=== PATIENT | male | born 1975 | race Caucasian/White ===

== ENCOUNTER 2021-11-19 14:19 | Day surgery (SDC) | payer BC ==
[2021-11-19] MEDS ORDERED: LIDOCAINE HCL 2% 100 MG/5 ML IJ ONE (14:20)
[2021-11-19] MEDS ORDERED: DIPRIVAN 200 MG/20 ML IV ONE (16:01)
[2021-11-19] MEDS ORDERED: Lactated Ringers 1,000 ML IV ONE (16:36)
--- NOTE | 2021-11-19 16:48 | XRAY ---
Indication: Right C2-C4 MBB. Intraoperative fluoroscopy provided for 23 seconds. 2 digital spot images submitted for interpretation demonstrates posterior needle tips projecting over the expected right C2-C4 nerve roots. Correlate with intraoperative findings/report.
--- NOTE | 2021-11-20 09:19 | XRAY ---
23 seconds fluoroscopy time in surgery for right C2-C4 MBB.
== END 2021-11-19 16:35 | disposition home or self-care (01) ==
LOC: SDC-PAIN 14:19
PROVIDERS: ATTEND Psychiatry & Neurology Pain Medicine
DX: M47.812 Spondylosis without myelopathy or radiculopathy, cervical region (principal); Z79.899 Other long term (current) drug therapy
CPT/HCPCS: 64490; 64491; 72040; 77002; J2704

== ENCOUNTER 2021-12-17 13:19 | Day surgery (SDC) | payer BC ==
[2021-12-17] MEDS ORDERED: BUPIVACAINE 0.5% VIAL IJ ONE (13:20)
[2021-12-17] MEDS ORDERED: Versed 2 MG/2 ML Injection ONE (13:45)
[2021-12-17] MEDS ORDERED: Lactated Ringers 1,000 ML IV ONE (14:35)
[2021-12-17] MEDS ORDERED: DIPRIVAN 200 MG/20 ML IV ONE (14:54)
--- NOTE | 2021-12-17 18:23 | XRAY ---
Indication: Right C2-C4 MBB. Intraoperative fluoroscopy provided for 24 seconds. 2 digital spot image submitted for interpretation demonstrates posterior needle tips projecting over the expected right C2-C4 nerve roots. Correlate with intraoperative findings/report. Incidental partially visualized C5-C6 anterior fusion hardware
--- NOTE | 2021-12-17 18:34 | XRAY ---
24 seconds fluoroscopy time in surgery for right C2-C4 MBB.
== END 2021-12-17 15:25 | disposition home or self-care (01) ==
LOC: SDC-PAIN 13:19
PROVIDERS: ATTEND Psychiatry & Neurology Pain Medicine
DX: M47.812 Spondylosis without myelopathy or radiculopathy, cervical region (principal); Z79.899 Other long term (current) drug therapy
CPT/HCPCS: 64490; 64491; 72040; 77002; J2250; J2704

== ENCOUNTER 2022-01-14 14:13 | Day surgery (SDC) | payer BC ==
[2022-01-14] MEDS ORDERED: LIDOCAINE HCL 2% 100 MG/5 ML IJ ONE (14:14)
[2022-01-14] MEDS ORDERED: Versed 2 MG/2 ML Injection ONE (15:34)
[2022-01-14] MEDS ORDERED: Lactated Ringers 1,000 ML IV ONE (16:46)
[2022-01-14] MEDS ORDERED: DIPRIVAN 200 MG/20 ML IV ONE (16:58)
[2022-01-14] MEDS ORDERED: Xylocaine-Mpf 2% 5 Ml Vial ONE (16:59)
--- NOTE | 2022-01-14 18:46 | XRAY ---
Indication: Left C2-C4 MBB. Intraoperative fluoroscopy provided for 15 seconds. 2 digital spot image submitted for interpretation demonstrates posterior needle tips projecting over the expected left C2-C4 nerve roots. Correlate with intraoperative findings/report.
--- NOTE | 2022-01-15 08:41 | XRAY ---
15 seconds of fluoroscopy was used in surgery for a left C2-C4 MBB.
== END 2022-01-14 17:30 | disposition home or self-care (01) ==
LOC: SDC-PAIN 14:13
PROVIDERS: ATTEND Psychiatry & Neurology Pain Medicine
DX: M47.812 Spondylosis without myelopathy or radiculopathy, cervical region (principal); Z79.899 Other long term (current) drug therapy
CPT/HCPCS: 64490; 64491; 72040; 77002; J2250; J2704

== ENCOUNTER 2022-02-18 13:26 | Day surgery (SDC) | payer BC ==
[2022-02-18] MEDS ORDERED: Lactated Ringers 1,000 ML IV ONE (16:37)
== END 2022-02-18 15:10 | disposition home or self-care (01) ==
LOC: SDC-PAIN 13:26
PROVIDERS: ATTEND Psychiatry & Neurology Pain Medicine
DX: I10 Essential (primary) hypertension (principal); Z53.8 Procedure and treatment not carried out for other reasons

== ENCOUNTER 2022-02-18 15:15 | Emergency (ER) | payer BC ==
--- NOTE | 2022-02-18 15:18 | ERPHSYRPT ---
- History of Present Illness Time Seen by Provider: 02/18/22 15:18 Source: patient Exam Limitations: no limitations Physician History: This is a 46-year-old white male patient who has history of hypertension and is on a single agent to control his blood pressure. Patient was sent to us from the outpatient pain clinic where he was to undergo pain injection but because of his systolic blood pressure greater than 200 and the fact the patient is having a headache, the procedure was canceled and patient was sent to the emergency department for further evaluation and treatment. The patient arrives to the emergency department with a systolic blood pressure in the 170s. Patient's headache is improving. He has no visual changes. Timing/Duration: today Severity: mild (To moderate) Associated Symptoms: headaches, No nausea, No vomiting, No abdominal pain, No shortness of breath, No chest pain Allergies/Adverse Reactions: No Known Drug Allergies Allergy (Verified 02/18/22 15:24) Home Medications: Adalimumab [Humira(Cf) Pen] 40 mg SQ UD 02/18/22 [History] Duloxetine HCl [Cymbalta] 60 mg PO DAILY 02/18/22 [History] Valsartan 320 mg PO DAILY 02/18/22 [History] Travel Risk - International Travel Have you traveled outside of the country in past 3 weeks: No - Coronavirus Screening Are you exhibiting any of the following symptoms?: No Close contact with a COVID-19 positive Pt in past 14-21 Days: No - Review of Systems Constitutional: No Symptoms Eyes: No Symptoms Ears, Nose, & Throat: No Symptoms Respiratory: No Symptoms Cardiac: No Symptoms Abdominal/Gastrointestinal: No Symptoms Genitourinary Symptoms: No Symptoms Musculoskeletal: No Symptoms Skin: No Symptoms Neurological: Headache Psychological: No Symptoms Endocrine: No Symptoms Hematologic/Lymphatic: No Symptoms Immunological/Allergic: No Symptoms All Other Systems: Reviewed and Negative - Past Medical History Pertinent Past Medical History: Yes - Past Surgical History Past Surgical History: Yes - Nursing Vital Signs Nursing Vital Signs: Initial Vital Signs Temperature 98.0 F 02/18/22 15:16 Pulse Rate 89 02/18/22 15:16 Blood Pressure 171/132 02/18/22 15:16 O2 Sat by Pulse Oximetry 96 02/18/22 15:16 Pain Scale Pain Intensity 0 - Physical Exam General Appearance: no apparent distress, alert, anxiety Eye Exam: PERRL/EOMI, eyes nml inspection Ears, Nose, Throat Exam: normal ENT inspection, moist mucous membranes Neck Exam: normal inspection, non-tender, supple, full range of motion Respiratory Exam: normal breath sounds, lungs clear, airway intact, No chest tenderness, No respiratory distress Cardiovascular Exam: regular rate/rhythm, normal heart sounds, normal peripheral pulses Gastrointestinal/Abdomen Exam: soft, normal bowel sounds, No tenderness Rectal Exam: not done Back Exam: normal inspection, normal range of motion, No CVA tenderness, No vertebral tenderness Extremity Exam: normal inspection, normal range of motion, pelvis stable Neurologic Exam: alert, oriented x 3, cooperative, 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, normal mood/affect, nml cerebellar function, nml station & gait, sensation nml, other (Nonfocal exam) Skin Exam: normal color, warm, dry Lymphatic Exam: No adenopathy SpO2 Interpretation: normal O2 Delivery: Room Air - Course Nursing assessment & vital signs reviewed: Yes Ordered Tests: Active Orders 24 hr Category Date Time Status EKG-ER Only STAT Care 02/18/22 15:47 Active IV Insertion STAT Care 02/18/22 15:47 Active Pulse Oximetry (ED) STAT Care 02/18/22 15:47 Active HEAD WITHOUT CONTRAST [CT] Stat Exams 02/18/22 15:48 Completed CBC W DIFF Stat Lab 02/18/22 16:05 Completed CMP Stat Lab 02/18/22 16:05 Completed Medication Summary Discontinued Medications Generic Name Dose Route Start Last Admin Trade Name Freq PRN Reason Stop Dose Admin Enalaprilat 1.25 mg 02/18/22 16:43 02/18/22 16:49 Enalaprilat 2.5 Mg Injection IV 02/18/22 16:44 1.25 mg STAT ONE Administration Enalaprilat Confirm 02/18/22 16:48 Enalaprilat 2.5 Mg Injection Administered 02/18/22 16:49 Dose 2.5 mg IV .STK-MED ONE Hydralazine HCl 10 mg 02/18/22 15:47 02/18/22 16:00 Hydralazine Hcl 20 Mg/Ml Vial IV 02/18/22 15:48 10 mg STAT ONE Administration Hydralazine HCl Confirm 02/18/22 15:59 Hydralazine Hcl 20 Mg/Ml Vial Administered 02/18/22 16:00 Dose 20 mg .ROUTE .STK-MED ONE Lab/Rad Data: Laboratory Result Diagrams 02/18/22 16:05 02/18/22 16:05 Laboratory Results 02/18/22 02/18/22 Range/Units 16:05 16:05 WBC 7.7 (4.0-10.5) x10^3/uL RBC 4.78 (4.1-5.6) x10^6/uL Hgb 14.9 (12.5-18.0) g/dL Hct 44.9 (42-50) % MCV 93.9 (78-100) fL MCH 31.2 (26-32) pg MCHC 33.2 (32-36) g/dL RDW 12.0 (11.5-14.0) % Plt Count 291 (150-450) x10^3/uL MPV 9.1 (7.5-11.0) fL Gran % 50.7 (36.0-66.0) % Immature Gran % (Auto) 0.3 (0.00-0.4) % Nucleat RBC Rel Count 0.0 (0.00-0.1) % Eos # (Auto) 0.08 (0-0.5) x10^3/uL Immature Gran # (Auto) 0.02 (0.00-0.03) x10^3u/L Absolute Lymphs (auto) 2.76 (1.0-4.6) x10^3/uL Absolute Monos (auto) 0.85 (0.0-1.3) x10^3/uL Absolute Nucleated RBC 0.00 (0.00-0.01) x10^3u/L Lymphocytes % 36.1 (24.0-44.0) % Monocytes % 11.1 (0.0-12.0) % Eosinophils % 1.0 (0.00-5.0) % Basophils % 0.8 (0.0-0.4) % Absolute Granulocytes 3.88 (1.4-6.9) x10^3/uL Basophils # 0.06 (0-0.4) x10^3/uL Sodium 138 (137-145) mmol/L Potassium 4.1 (3.5-5.1) mmol/L Chloride 101 (98-107) mmol/L Carbon Dioxide 33 H (22-30) mmol/L Anion Gap 7.8 (5-15) MEQ/L BUN 13 (9-20) mg/dL Creatinine 1.16 (0.66-1.25) mg/dL Estimated GFR > 60.0 ML/MIN Glucose 102 (74-106) mg/dL Calcium 8.9 (8.4-10.2) mg/dL Total Bilirubin 0.80 (0.2-1.3) mg/dL AST 25 (17-59) U/L ALT 34 (0-50) U/L Alkaline Phosphatase 56 (38-126) U/L Serum Total Protein 7.4 (6.3-8.2) g/dL Albumin 4.1 (3.5-5.0) g/dL - Progress Progress: improved, re-examined Progress Note: 02/18/22 16:50 CT of the head without contrast is normal Counseled pt/family regarding: lab results, diagnosis, need for follow-up, rad results - Departure Departure Disposition: Home Clinical Impression: Hypertensive urgency Condition: Stable Critical Care Time: Yes Critical Care Time(excluding separately billable procedures): Critical 30-74 mins (40 minutes) Referrals: [facility] [Primary Care Provider] - Follow up/PCP as directed Additional Instructions: Continue taking your blood pressure medication as prescribed. Monitor your blood pressure when you get home and also in the morning and write this down on a paper. Call your prescribing doctor tomorrow morning after you take your medication to obtain further instructions and recommendations for your m edications
[2022-02-18] MEDS ORDERED: APRESOLINE 20 MG/ML INJ IV ONE (15:47)
[2022-02-18] MEDS ORDERED: APRESOLINE 20 MG/ML INJ ONE (15:59)
[2022-02-18 16:20] LABS: Absolute Neutrophil Ct (ANC) 3.88 x10^3/uL (1.4-6.9); Basophil (Absolute #) 0.06 x10^3/uL (0-0.4); Eosinophil (Absolute #) 0.08 x10^3/uL (0-0.5); Hematocrit 44.9 % (42-50); Hemoglobin 14.9 g/dL (12.5-18.0); Lymphocyte (Absolute #) 2.76 x10^3/uL (1.0-4.6); Lymphocytes % 36.1 % (24.0-44.0); Mean Cell Volume 93.9 fL (78-100); Mean Corpuscular Hemoglobin 31.2 pg (26-32); Mean Corpuscular Hgb Concent. 33.2 g/dL (32-36); Mean Platelet Volume 9.1 fL (7.5-11.0); Monocyte (Absolute #) 0.85 x10^3/uL (0.0-1.3); Monocytes % 11.1 % (0.0-12.0); Neutrophil % 50.7 % (36.0-66.0); Platelet Count 291 x10^3/uL (150-450); Red Blood Count 4.78 x10^6/uL (4.1-5.6); White Blood Count 7.7 x10^3/uL (4.0-10.5)
--- NOTE | 2022-02-18 16:23 | XRAY ---
Indication: Headache. High blood pressure. Multiple contiguous axial images obtained through the head without contrast. Comparison: None Normal appearing brain parenchyma, ventricles, and bony calvarium. Visualized paranasal sinuses and mastoid air cells are clear. Impression: Normal CT head without contrast exam.
[2022-02-18 16:28] LABS: ALBUMIN 4.1 g/dL (3.5-5.0); ALKALINE PHOSPHATASE 56 U/L (38-126); ANION GAP 7.8 MEQ/L (5-15); BLOOD UREA NITROGEN 13 mg/dL (9-20); CHLORIDE 101 mmol/L (98-107); Calcium 8.9 mg/dL (8.4-10.2); Carbon Dioxide 33 mmol/L (22-30); Creatinine 1 1.16 mg/dL (0.66-1.25); EST GLOMERULAR FILTRATION RATE > 60.0 ML/MIN; Glucose 102 mg/dL (74-106); Potassium 4.1 mmol/L (3.5-5.1); SGOT/AST 25 U/L (17-59); SGPT/ALT 34 U/L (0-50); SODIUM 138 mmol/L (137-145); Total Protein 7.4 g/dL (6.3-8.2)
[2022-02-18 16:38] VITALS: O2SAT 96
[2022-02-18] MEDS ORDERED: ENALAPRILAT 2.5 MG INJECTION IV ONE ×2 (16:43→16:48)
[2022-02-18 17:35] VITALS: BP 142/105; PULSE 80
[2022-02-18] MEDS ORDERED: NORCO 5/325 MG PO ONE (17:38)
[2022-02-18] MEDS ORDERED: NORCO 5/325 MG ONE (17:38)
== END 2022-02-18 17:39 | disposition home or self-care (01) ==
LOC: ED 15:15
DX: I16.0 Hypertensive urgency (principal); R51.9 Headache, unspecified; Z79.899 Other long term (current) drug therapy
CPT/HCPCS: 36000; 36415; 70450; 80053; 85025; 93005; 94760; 96374; 96375; 99284; 99291; J0360; A9270-GY

== ENCOUNTER 2022-03-19 12:24 | Day surgery (SDC) | payer BC ==
[2022-03-19] MEDS ORDERED: Sensorcaine 0.25% 10 ML IJ ONE (12:25)
[2022-03-19] MEDS ORDERED: Versed 2 MG/2 ML Injection ONE (13:02)
[2022-03-19] MEDS ORDERED: Reglan 10 MG/2 ML ONE (13:22)
[2022-03-19] MEDS ORDERED: Pepcid 20 MG VIAL IV ONE (13:22)
--- NOTE | 2022-03-19 14:59 | XRAY ---
Indication: Left C2-C4 MBB. Intraoperative fluoroscopy provided for 24 seconds. 3 digital spot images submitted for interpretation demonstrates posterior needle tips projecting over the expected left C2-C4 nerve roots. Correlate with intraoperative findings/report. Incidental lower cervical fusion hardware.
[2022-03-19] MEDS ORDERED: Lactated Ringers 1,000 ML IV ONE (15:01)
--- NOTE | 2022-03-19 15:01 | XRAY ---
24 seconds fluoroscopy time in surgery for left C2-C4 MBB.
== END 2022-03-19 14:55 | disposition home or self-care (01) ==
LOC: SDC-PAIN 12:24
PROVIDERS: ATTEND Psychiatry & Neurology Pain Medicine
DX: M47.812 Spondylosis without myelopathy or radiculopathy, cervical region (principal); Z79.899 Other long term (current) drug therapy
CPT/HCPCS: 64490; 64491; 72040; 77002; J2250

== ENCOUNTER 2022-04-15 10:36 | Day surgery (SDC) | payer BC ==
[2022-04-15] MEDS ORDERED: Decadron 4 MG INJ IV ONE (10:37)
[2022-04-15] MEDS ORDERED: BUPIVACAINE 0.5% VIAL IJ ONE (10:37)
[2022-04-15] MEDS ORDERED: LIDOCAINE HCL 1% 50 MG/5 ML VL PF IJ ONE (10:37)
[2022-04-15] MEDS ORDERED: VERSED 5 MG/5 ML ONE (12:42)
[2022-04-15] MEDS ORDERED: Reglan 10 MG/2 ML ONE (12:42)
[2022-04-15] MEDS ORDERED: Xylocaine-Mpf 2% 5 Ml Vial ONE (13:07)
[2022-04-15] MEDS ORDERED: DIPRIVAN 200 MG/20 ML IV ONE ×2 (13:07→13:20)
[2022-04-15] MEDS ORDERED: Lactated Ringers 1,000 ML IV ONE (14:33)
--- NOTE | 2022-04-15 14:34 | XRAY ---
Indication: Right C2-C4 RFA. Intraoperative fluoroscopy provided for 33 seconds. 8 digital spot images submitted for interpretation demonstrates posterior needle tips projecting over the expected right C2-C4 nerve roots. Correlate with intraoperative findings/report. Incidental partially visualized lower cervical fusion hardware.
--- NOTE | 2022-04-15 15:13 | XRAY ---
33 seconds of fluoroscopy was used in surgery for a right C2-C4 RFA.
== END 2022-04-15 13:40 | disposition home or self-care (01) ==
LOC: SDC-PAIN 10:36
PROVIDERS: ATTEND Psychiatry & Neurology Pain Medicine
DX: M47.812 Spondylosis without myelopathy or radiculopathy, cervical region (principal); Z79.899 Other long term (current) drug therapy
CPT/HCPCS: 64633; 64634; 72040; 77002; J1100; J2001; J2250; J2704

== ENCOUNTER 2022-04-22 10:57 | Day surgery (SDC) | payer BC ==
[2022-04-22] MEDS ORDERED: Decadron 4 MG INJ IV ONE (10:58)
[2022-04-22] MEDS ORDERED: BUPIVACAINE 0.5% VIAL IJ ONE (10:58)
[2022-04-22] MEDS ORDERED: LIDOCAINE HCL 1% 50 MG/5 ML VL PF IJ ONE (10:58)
[2022-04-22] MEDS ORDERED: Versed 2 MG/2 ML Injection ONE (11:38)
[2022-04-22] MEDS ORDERED: DIPRIVAN 200 MG/20 ML IV ONE (13:13)
[2022-04-22] MEDS ORDERED: Lactated Ringers 1,000 ML IV ONE (14:09)
--- NOTE | 2022-04-22 16:21 | XRAY ---
Indication: Left C2-C4 RFA. Intraoperative fluoroscopy provided for 18 seconds. 4 digital spot image submitted for interpretation demonstrates posterior needle tips projecting over the expected left C2-C4 nerve roots. Correlate with intraoperative findings/report. Incidental partially visualized lower cervical fusion hardware.
--- NOTE | 2022-04-22 16:30 | XRAY ---
18 seconds of fluoroscopy was used in surgery for a left C2-C4 RFA.
== END 2022-04-22 13:45 | disposition home or self-care (01) ==
LOC: SDC-PAIN 10:57
PROVIDERS: ATTEND Psychiatry & Neurology Pain Medicine
DX: M47.812 Spondylosis without myelopathy or radiculopathy, cervical region (principal); Z79.899 Other long term (current) drug therapy
CPT/HCPCS: 64635; 64636; 72040; 77002; J1100; J2001; J2250; J2704

== ENCOUNTER 2023-03-18 09:17 | Day surgery (SDC) | payer BC ==
[2023-03-18] MEDS ORDERED: BUPIVACAINE 0.5% VIAL IJ ONE (09:18)
[2023-03-18] MEDS ORDERED: Depo-Medrol 40 MG/ML IM ONE (09:18)
[2023-03-18] MEDS ORDERED: Versed 2 MG/2 ML Injection ONE (10:47)
[2023-03-18] MEDS ORDERED: Xylocaine-Mpf 2% 5 Ml Vial ONE (11:45)
[2023-03-18] MEDS ORDERED: DIPRIVAN 200 MG/20 ML IV ONE (11:45)
[2023-03-18] MEDS ORDERED: TORAdol 30 mg Injection ONE (12:02)
--- NOTE | 2023-03-18 13:36 | XRAY ---
Indication: Right SI joint injection. Intraoperative fluoroscopy provided for 10 seconds. 2 digital spot images submitted for interpretation demonstrates posterior needle tip projecting over right SI joint. Correlate with intraoperative findings/report.
--- NOTE | 2023-03-18 14:30 | XRAY ---
10 seconds of fluoroscopy was used in surgery for a right sacroiliac joint injection.
[2023-03-18] MEDS ORDERED: Lactated Ringers 1,000 ML IV ONE (16:22)
== END 2023-03-18 12:18 | disposition home or self-care (01) ==
LOC: SDC-PAIN 09:17
PROVIDERS: ATTEND Psychiatry & Neurology Pain Medicine
DX: M46.1 Sacroiliitis, not elsewhere classified (principal); R73.03 Prediabetes
CPT/HCPCS: 27096; 72170; 77002; 82947; J1030; J1885; J2250; J2704; G0260

== ENCOUNTER 2024-05-24 09:28 | Day surgery (SDC) | payer BC ==
[2024-05-24] MEDS ORDERED: LIDOCAINE HCL 2% 100 MG/5 ML IJ ONE (09:29)
[2024-05-24] MEDS ORDERED: Lactated Ringers 500 ML IV ONE (09:34)
[2024-05-24] MEDS ORDERED: Versed 2 MG/2 ML Injection ONE (10:18)
[2024-05-24] MEDS ORDERED: propofoL IV ONE ×2 (11:11→11:26)
--- NOTE | 2024-05-24 13:05 | XRAY ---
Indication: Left C2-C4 MBB. Intraoperative fluoroscopy provided for 23 seconds. 3 digital spot image submitted for interpretation demonstrates posterior needle tips projecting over expected left C2-C4 nerve roots. Correlate with intraoperative findings/report.
--- NOTE | 2024-05-24 13:12 | XRAY ---
23 seconds of fluoroscopy was used in surgery for a left C2-C4 MBB.
== END 2024-05-24 11:40 | disposition home or self-care (01) ==
LOC: SDC-PAIN 09:28
PROVIDERS: ATTEND Psychiatry & Neurology Pain Medicine
DX: M47.812 Spondylosis without myelopathy or radiculopathy, cervical region (principal); R73.03 Prediabetes
CPT/HCPCS: 64490; 64491; 72040; 77002; 82947; J2250; J2704

== ENCOUNTER 2024-10-25 10:13 | Emergency (ER) | payer BC ==
[2024-10-25 10:44] VITALS: TEMP 96.9
--- NOTE | 2024-10-25 10:49 | ERPHSYRPT ---
- History of Present Illness Time Seen by Provider: 10/25/24 10:49 Source: patient Exam Limitations: no limitations Patient Subjective Stated Complaint: PT states "I was supposed to get a nerve block in my neck by Dr. Nicole today and the nurse got me all frustrated and my blood pressure was up and they sent me here." Triage Nursing Assessment: Pt presented alert and oriented X 3, skin pwd. Pt offered a wheelchair and he declined. Pt ambulates with an upright steady gait, able to speak in clear full sentences. PT slighty aggrivated, resting comfortably on the bed. Physician History: This is an overweight 49-year-old white male patient who presented to the emergency department at the [facility] of pain clinic. Patient has chronic neck pain and was scheduled today to have a nerve block injection into his cervical spine. However his blood pressure was significantly elevated. This frustrated the patient and his blood pressure did not decrease. The only blood pressure medication that he did not take this morning is his metoprolol. He did take his amlodipine and losartan. He does not have any visual changes. He denies headache. He does not have any chest pain. He does not want a workup he only wants to have pain in his neck improved. He states his blood pressure always is elevated when he goes to the doctor or to the hospital. The patient's initial blood pressure was 167. The second reading was 143. However his diastolic pressure on both readings were over 100. Timing/Duration: today Severity: mild (To moderate) Modifying Factors: Improves With: other (Patient now angry and frustrated) Associated Symptoms: other (Neck pain is his only complaint) Allergies/Adverse Reactions: No Known Drug Allergies Allergy (Verified 02/18/22 15:24) Home Medications: Adalimumab [Humira(Cf) Pen] 40 mg SQ UD 02/18/22 [History] Duloxetine HCl [Cymbalta] 60 mg PO DAILY 02/18/22 [History] Valsartan 320 mg PO DAILY 02/18/22 [History] Amlodipine Besylate [Norvasc] 10 mg PO DAILY 10/25/24 [History] Hydrocodone/Acetaminophen [Hydrocodone-Acetamin 5-325 mg] 1 tab PO DAILY PRN 10/25/24 [History] Hx Tetanus, Diphtheria Vaccination/Date Given: Yes Hx Influenza Vaccination/Date Given: Yes Hx Pneumococcal Vaccination/Date Given: No Immunizations Up to Date: No Travel Risk - International Travel Have you traveled outside of the country in past 3 weeks: No - Emerging Infectious Disease Are you exhibiting symptoms associated with any current EIDs: No - Review of Systems Constitutional: No Symptoms Eyes: No Symptoms Ears, Nose, & Throat: No Symptoms Respiratory: No Symptoms Cardiac: No Symptoms Abdominal/Gastrointestinal: No Symptoms Genitourinary Symptoms: No Symptoms Musculoskeletal: Neck Pain Skin: No Symptoms Neurological: No Symptoms Psychological: No Symptoms Endocrine: No Symptoms Hematologic/Lymphatic: No Symptoms Immunological/Allergic: No Symptoms All Other Systems: Reviewed and Negative - Past Medical History Pertinent Past Medical History: Yes Cardiac History: High Cholesterol, Hypertension Musculoskeletal History: Arthritis 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 shoulder. elbow - Social History Smoking Status: Current every day smoker Exposure to second hand smoke: Yes Drug Use: marijuana - Social Determinants of Health Will the patient participate in the screening: Declined to provide - Nursing Vital Signs Nursing Vital Signs: Initial Vital Signs Temperature 96.9 F 10/25/24 10:40 Pulse Rate 73 10/25/24 10:40 Respiratory Rate 18 10/25/24 10:40 Blood Pressure 167/114 10/25/24 10:40 O2 Sat by Pulse Oximetry 95 10/25/24 10:40 Pain Scale Pain Intensity 0 - Physical Exam General Appearance: no apparent distress, alert, anxiety, obese, other (Patient is frustrated) Eye Exam: PERRL/EOMI Ears, Nose, Throat Exam: normal ENT inspection, moist mucous membranes Neck Exam: normal inspection, supple, full range of motion, other (No midline tenderness) Respiratory Exam: normal breath sounds, lungs clear, airway intact, No chest tenderness, No respiratory distress Cardiovascular Exam: regular rate/rhythm, normal heart sounds, normal peripheral pulses Gastrointestinal/Abdomen Exam: soft, normal bowel sounds, No tenderness Rectal Exam: not done Back Exam: normal inspection, normal range of motion, No CVA tenderness, No vertebral tenderness Extremity Exam: normal inspection, normal range of motion, pelvis stable Neurologic Exam: alert, oriented x 3, cooperative, 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, nml cerebellar function, nml station & gait, sensation nml Skin Exam: normal color, warm, dry Lymphatic Exam: No adenopathy SpO2 Interpretation: normal SpO2: 95 O2 Delivery: Room Air - Course Nursing assessment & vital signs reviewed: Yes Ordered Tests: Medication Summary Discontinued Medications Generic Name Dose Route Start Last Admin Trade Name Raul PRN Reason Stop Dose Admin Hydromorphone HCl 1 mg 10/25/24 11:38 Hydromorphone 1 Mg/1ml Inj IM 10/25/24 11:39 STAT ONE Ketorolac Tromethamine 60 mg 10/25/24 11:39 Ketorolac Tromethamine 30 Mg/Ml Inj IM 10/25/24 11:40 STAT ONE Ondansetron HCl 4 mg 10/25/24 11:39 Zofran 4 Mg/Udtablet Orally Disintegrating PO 10/25/24 11:40 STAT ONE Orphenadrine Citrate 60 mg 10/25/24 11:39 Orphenadrine Citrate 60 Mg/2 Ml Vial IM 10/25/24 11:40 STAT ONE - Progress Progress: improved, pain not gone completely, re-examined Progress Note: 10/25/24 12:12 My medical decision making and the assignment of low complexity of this patient's medical issue today is based on review of the patient's past medical history, review of the patient's medication list, review of patient drug allergy list, history present illness and physical findings on examination. The patient does not want a workup. He only wants pain relief for his neck. Patient states that his blood pressure is always higher when he comes to the doctor or the hospital. He is angry and upset. He also did not take one of his blood pressure medications prior to arrival. Patient has a nonfocal neurologic exam. Differential diagnosis includes hypertension, emotional upset causing elevated blood pressure, pain syndrome causing elevated blood pressure and noncompliant with his morning blood pressure medication today Counseled pt/family regarding: diagnosis, need for follow-up Medical Desision Making - Diagnostic Testing Diagnostic test were ordered, analyzed, and reviewed by me: No - Risk of complications Low Risk: Low risk of morbidity from additional dx testing or treatment The pt has a mod risk of morbidity or mortality based on: Need for prescription drug management - Departure Departure Disposition: Home Clinical Impression: Hypertension, Neck pain Condition: Stable Critical Care Time: No Referrals: REAGAN SANTOYO DO [Primary Care Provider, [facility]] - Follow up/PCP as directed Additional Instructions: When you arrive at home, take your blood pressure medication as prescribed and as discussed. Call your prescribing provider and pain specialist to arrange follow-up appointment to be seen in the next 3 to 5 days. Prescriptions: Orphenadrine Citrate 100 mg [Norflex 100 MG Tablet] 100 mg PO BID #10 tab
[2024-10-25] MEDS ORDERED: Norflex 60 MG/2 ML ONE (12:24)
[2024-10-25] MEDS ORDERED: ZOFRAN ODT 4 MG ONE (12:24)
[2024-10-25] MEDS ORDERED: TORAdol 30 mg Injection ONE ×2 (12:24→12:27)
[2024-10-25] MEDS ORDERED: Hydromorphone 1 mg/ml Injection ONE (12:24)
[2024-10-25] MEDS: Norflex 60 MG/2 ML IM ONE (12:26)
[2024-10-25] MEDS: TORAdol 30 mg Injection IM ONE (12:26)
[2024-10-25] MEDS: ZOFRAN ODT 4 MG PO ONE (12:26)
[2024-10-25] MEDS: Hydromorphone 1 mg/ml Injection IM ONE (12:28)
[2024-10-25 12:51] VITALS: BP 160/107; PULSE 89; RESP 16; O2SAT 93
== END 2024-10-25 12:51 | disposition home or self-care (01) ==
LOC: ED 10:13
DX: I10 Essential (primary) hypertension (principal); M54.2 Cervicalgia; Z79.891 Long term (current) use of opiate analgesic; Z79.899 Other long term (current) drug therapy; Z72.0 Tobacco use

== ENCOUNTER 2024-11-02 12:05 | Day surgery (SDC) | payer BC ==
[2024-11-02] MEDS ORDERED: BUPIVACAINE 0.5% VIAL IJ ONE (12:06)
[2024-11-02] MEDS ORDERED: Versed 2 MG/2 ML Injection ONE (13:35)
[2024-11-02] MEDS ORDERED: propofoL IV ONE (14:06)
[2024-11-02] MEDS ORDERED: Lactated Ringers 1,000 ML IV ONE (14:35)
--- NOTE | 2024-11-02 15:18 | XRAY ---
Indication: Left C2-C4 MBB. Intraoperative fluoroscopy provided for 20 seconds. 3 digital spot image submitted for interpretation demonstrates posterior needle tips projecting over expected left C2-C4 nerve roots. Correlate with intraoperative findings/report. Incidental lower cervical fusion hardware.
--- NOTE | 2024-11-02 22:15 | XRAY ---
20 seconds of fluoroscopy was used in surgery for a left C2-C4 MBB.
== END 2024-11-02 14:35 | disposition home or self-care (01) ==
LOC: SDC-PAIN 12:05
PROVIDERS: ATTEND Psychiatry & Neurology Pain Medicine
DX: M47.812 Spondylosis without myelopathy or radiculopathy, cervical region (principal); R73.03 Prediabetes

== ENCOUNTER 2024-12-20 06:51 | Day surgery (SDC) | payer BC ==
[2024-12-20] MEDS ORDERED: propofoL IV ONE (08:22)
[2024-12-20] MEDS ORDERED: Lactated Ringers 1,000 ML IV ONE (09:49)
--- NOTE | 2024-12-20 19:17 | XRAY ---
Indication: Right C2-C4 MBB. Intraoperative fluoroscopy provided for 21 seconds. 3 digital spot image submitted for interpretation demonstrates posterior needle tips projecting over expected right C2-C4 nerve roots. Correlate with intraoperative findings/report. Incidental lower cervical fusion hardware
--- NOTE | 2024-12-20 19:37 | XRAY ---
21 seconds of fluoroscopy was used in surgery for a right C2-C4 MBB.
== END 2024-12-20 08:53 | disposition home or self-care (01) ==
LOC: SDC-PAIN 06:51
PROVIDERS: ATTEND Psychiatry & Neurology Pain Medicine
DX: M47.812 Spondylosis without myelopathy or radiculopathy, cervical region (principal); R73.03 Prediabetes

== ENCOUNTER 2025-01-17 08:27 | Day surgery (SDC) | payer BC ==
[2025-01-17] MEDS ORDERED: LIDOCAINE HCL 1% 50 MG/5 ML VL IJ ONE (08:28)
[2025-01-17] MEDS ORDERED: BUPIVACAINE 0.5% VIAL IJ ONE (08:28)
[2025-01-17] MEDS ORDERED: Lactated Ringers 1,000 ML IV ONE (09:00)
[2025-01-17] MEDS ORDERED: propofoL IV ONE (10:49)
--- NOTE | 2025-01-17 13:23 | XRAY ---
Indication: Right C2-C4 RFA. Intraoperative fluoroscopy provided for 22 seconds. 3 digital spot image submitted for interpretation demonstrates posterior needle tips projecting over expected right C2-C4 nerve roots. Correlate with intraoperative findings/report. Incidental lower cervical fusion hardware.
--- NOTE | 2025-01-17 13:54 | XRAY ---
22 seconds of fluoroscopy were used in surgery for a right C2-C4 RFA.
== END 2025-01-17 11:20 | disposition home or self-care (01) ==
LOC: SDC-PAIN 08:27
PROVIDERS: ATTEND Psychiatry & Neurology Pain Medicine
DX: M47.812 Spondylosis without myelopathy or radiculopathy, cervical region (principal); R73.03 Prediabetes

== ENCOUNTER 2025-01-31 08:47 | Day surgery (SDC) | payer BC ==
[2025-01-31] MEDS ORDERED: LIDOCAINE HCL 1% 50 MG/5 ML VL IJ ONE (08:48)
[2025-01-31] MEDS ORDERED: BUPIVACAINE 0.5% VIAL IJ ONE (08:48)
[2025-01-31] MEDS ORDERED: propofoL IV ONE ×2 (10:06→10:19)
[2025-01-31] MEDS ORDERED: Lactated Ringers 1,000 ML IV ONE (11:00)
--- NOTE | 2025-01-31 12:28 | XRAY ---
Indication: Left C2-C4 RFA. Intraoperative fluoroscopy provided for 20 seconds. 4 digital spot image submitted for interpretation demonstrates posterior needle tips projecting over expected left C2-C4 nerve roots. Correlate with intraoperative findings/report. Incidental lower cervical fusion hardware
--- NOTE | 2025-01-31 12:53 | XRAY ---
20 seconds of fluoroscopy was used in surgery for a left C2-C4 RFA.
== END 2025-01-31 10:53 | disposition home or self-care (01) ==
LOC: SDC-PAIN 08:47
PROVIDERS: ATTEND Psychiatry & Neurology Pain Medicine
DX: M47.812 Spondylosis without myelopathy or radiculopathy, cervical region (principal); R73.03 Prediabetes